=== PATIENT | female | born 1990 | race Asian ===

== ENCOUNTER 2019-10-03 16:37 | Inpatient (IN) | payer OTHER ==
[2019-10-03] MEDS ORDERED: Lactated Ringers 1000 ML Bag* 1,000 ML IV ONE (20:06)
[2019-10-03] MEDS ORDERED: Buffered Lidocaine 1% SYRIN* 1 ML/SYRINGE INTRADERM ONE (20:06)
--- NOTE | 2019-10-03 20:23 | HP ---
General Information - General Information Maternal Age: 28 Grav: 3 Para: 2 SAB: 0 IEA: 0 Estimated Due Date: 10/28/19 Determined By: LMP Gestational Age in Weeks/Days: 36w3d Maternal Blood Type and Rh: A Positive - Results this Serology/RPR Result: Non-Reactive Rubella Result: Immune HBsAg Result: Negative HIV Result: Negative GBS Culture Result: Negative Past Medical History Delivery History: Hx C/Section - G1 2/2 Breech presentation, pre-term labor at 32 weeks. Successful at 31 weeks, subsequent demise at 5 days of life secondary to baby delivered pre-term in remote setting in [place] with inadequate care. Pertinent Past Medical History: Non-Contributory Pertinent Past Surgical History: See Records Pertinent Family History: Non-Contributory - Antepartal Records Antepartal Records: Reviewed, Complicated by: - Poor Obstetric History , Hx of PTD x 2 and demise, Short Cervix current gestation, GDMA1, Bicornuate Uterus Review of Systems Constitutional: Comfortable CV Complaint: No Respiratory: Shortness of Breath: No Gastrointestinal: No Nausea/Vomiting, Normal Bowel Movement Genitourinary: Leaking Fluid, No Dysuria, No Bleeding Musculoskeletal: No Complaint, No Epigastric Pain Neurological: No Headache, No Visual Changes Movement: Normal Exam Allergies/Adverse Reactions: Allergies No Known Allergies Allergy (Verified 08/19/19 13:33) Temp 98 Pulse 84 RR 18 BP 117/72 Lab Values - Entire Visit: Laboratory Tests 10/03/19 10/03/19 16:45 18:47 Vag Amniotic Fld Detect Negative Negative - Measurements Pre- Weight: 172 lb - Exam Breast: Breast Exam Deferred CVA: No CVA Tenderness Extremities: No Edema Heart: Normal Rhythm/Heart Sounds HEENT: No Significant Findings Lungs: Clear Bilaterally Rectal: Rectal Exam Deferred Reflexes: DTR 2+ Thyroid: No Thyromegaly - Abdominal Exam Abdomen Exam: Non-Tender - Ultrasound/Biophysical Profile Ultrasound Status: Bedside Exam Ultrasound Findings: Vertex, ARELY 11, Anterior placenta, active fetus Targeted Exam Findings Estimated Weight: 5# Cervical Exam: 4cm Effacement: Complete Station: -1 - Exam performed in office on 09/30/2019, deferred today secondary to PPROM Presenting Part: Vertex Membrane Status: SROM Amniotic Fluid Evaluation: Negative ROM Plus - Negative ROM Plus, but patient is grossly ruptured on speculum exam with pooling of amniotic fluid with vernax present, amniotic fluid seen pooling directly out of cervix with valsalva Sterile Speculum Exam: On speculum exam there is pooling of amniotic fluid Bleeding/Discharge: None EFM Findings - External Monitor Findings Baseline Heart Rate: 130 External Monitor Findings: Accelerations Present, No Pattern of Variable or Late Decelerations, Variability Moderate, Baseline Stable Contractions: Irregular, 45-90 Seconds Contraction Frequency: occasional Assessment/Plan - Assessment 28 y/o at 36w3d with gross rupture of membranes; ROM plus was negative, but on speculum exam there is large pooling with vernax and pooling visualized directly from the cervical Os GDMA1 Hx of PTL x 2 Hx of x 1, followed by successful Bicornuate uterus - Obstetrical Risk Factors Obstetrical Risk Factors: , Gestational Diabetes, Previous C/Section in Labor - Plan Plan: Induction Plan Comment: Admit to Labor and Delivery Received course of steroids at 30 weeks gestation, no indication for repeat steroids at this gestation GBS negative Will collect FSBG values q 4 hours Will insert IV and collect CBC/T&S Augment with Pitocin now TOLAC/ consent forms reviewed and signed Anesthesia aware - Date/Time of Admission Date of Admission: 10/03/19 Time of Admission: 21:00
[2019-10-03] MEDS ORDERED: Oxytocin in LR* 20 UNITS/1,000 ML BAG IVPB SCH (21:00)
[2019-10-03] MEDS ORDERED: Lactated Ringers 1000 ML Bag* 1,000 ML IV SCH (21:00)
[2019-10-03 21:53] LABS: ABS Eosinophils 0.1 10^3/ul (0-0.6); ABS Lymphocytes 2.1 10^3/ul (1.0-4.8); ABS Monocytes 0.8 10^3/ul (0-0.8); ABS Neutrophils 6.3 10^3/ul (1.5-7.7); Eosinophil % 1.3 %; Hematocrit 35 % (35-47); Hemoglobin 11.4 g/dL (12.0-16.0); Lymphocyte % 22.5 %; Mean Corpuscular HGB Conc 33 g/dL (31-36); Mean Corpuscular Hemoglobin 26 pg (27-31); Mean Corpuscular Volume 81 fL (80-97); Mean Platelet Volume 9.3 fL (7.4-10.4); Platelet Count 248 10^3/uL (150-450); Red Blood Count 4.32 10^6 /uL (3.70-4.87); Red Cell Distribution Width 17 % (10-15); White Blood Count 9.3 10^3/uL (3.5-10.8)
[2019-10-03 23:18] LABS: Urine Benzodiazepine Screen None Detected (None Detect); Urine Opiates Screen None Detected (None Detect)
[2019-10-04] MEDS ORDERED: Acetaminophen TAB* 325 MG PO PRN (00:50)
[2019-10-04] MEDS ORDERED: Glycerin ADULT SUPP PR PRN (00:50)
[2019-10-04] MEDS ORDERED: Witch Hazel PAD* JAR TOPICAL PRN (00:50)
[2019-10-04] MEDS ORDERED: Dibucaine 1% 28.35 GM TUBE PR PRN (00:50)
[2019-10-04] MEDS: Ibuprofen TAB* 600 MG PO PRN ×2 (00:59→15:04)
[2019-10-04] MEDS ORDERED: Lactated Ringers 1000 ML Bag* 1,000 ML IV SCH (01:00)
[2019-10-04] MEDS ORDERED: Oxytocin in LR* 20 UNITS/1,000 ML BAG IVPB SCH (01:00)
--- NOTE | 2019-10-04 01:24 | PROCNOTE ---
[facility] OB: Delivery Note - Delivery A Date of : 10/03/19 Time of : 23:34 [place] Weight at : 4 lb 15 oz Score 1 Minute: 8 Score 5 Minutes: 9 Gestational Age in Weeks and Days at Delivery: 36 Weeks and 3 Days Delivery Method: Spontaneous Vaginal Labor: Induced Did Patient attempt ?: Yes, Successful Amniotic Fluid: Clear Estimated Blood Loss: 250 Anesthesia/Analgesia: None Delivered By: Akbar Cross JR - Nursery Level of Nursery: Regular/Bedside - Perineum Perineal Injury: Vaginal Laceration, 1st Degree Perineal Repair: By Delivering Practioner - Repaired with 3-0 Vicryl rapide, bilateral labial lacerations, 1st degree perineal - Events Delivery Events of Note: Pitocin During Labor - Additional Delivery Notes Additional Delivery Notes: Pt presented to L&D with gross rupture of membranes. Admitted and Pitocin started for augmentation. Progressed to Fully dilated and delivered precipitiously. Mother and doing well at time of this note.
[2019-10-04] MEDS ORDERED: Simethicone TAB* 80 MG TAB.CHEW PO SCH (08:30)
[2019-10-04] MEDS: Docusate CAP* 100 MG PO SCH ×3 (08:36→20:11)
[2019-10-04 19:31] VITALS: BP 92/52
[2019-10-05] MEDS: Ibuprofen TAB* 600 MG PO PRN ×2 (02:36→09:06)
[2019-10-05 05:39] LABS: ABS Basophils 0.1 10^3/ul (0-0.2); ABS Eosinophils 0.5 10^3/ul (0-0.6); ABS Lymphocytes 3.5 10^3/ul (1.0-4.8); ABS Neutrophils 6.6 10^3/ul (1.5-7.7); Hematocrit 33 % (35-47); Hemoglobin 10.8 g/dL (12.0-16.0); Lymphocyte % 30.3 %; Mean Corpuscular HGB Conc 32 g/dL (31-36); Mean Corpuscular Hemoglobin 27 pg (27-31); Mean Corpuscular Volume 82 fL (80-97); Mean Platelet Volume 8.5 fL (7.4-10.4); Platelet Count 243 10^3/uL (150-450); Red Blood Count 4.07 10^6 /uL (3.70-4.87); Red Cell Distribution Width 17 % (10-15); White Blood Count 11.6 10^3/uL (3.5-10.8)
[2019-10-05] MEDS ORDERED: Ferrous Gluconate TAB* 324 MG TAB PO SCH (09:00)
[2019-10-05] MEDS: Docusate CAP* 100 MG PO SCH ×2 (11:04→17:49)
== END 2019-10-05 18:40 | disposition home or self-care (01) | DRG 560 ==
LOC: MCHOBOUT 16:37 → MCHOB 20:11
PROVIDERS: ADMIT Obstetrics & Gynecology; ATTEND Obstetrics & Gynecology
PROC: 10E0XZZ Delivery of Products of Conception, External Approach (ICD-10-PCS; principal; 2019-10-03)
PROC: 4A1HXCZ Monitoring of Products of Conception, Cardiac Rate, External Approach (ICD-10-PCS; 2019-10-03)
PROC: 0HQ9XZZ Repair Perineum Skin, External Approach (ICD-10-PCS; 2019-10-03)
PROC: 0UQMXZZ Repair Vulva, External Approach (ICD-10-PCS; 2019-10-03)
PROC: 3E033VJ Introduction of Other Hormone into Peripheral Vein, Percutaneous Approach (ICD-10-PCS; 2019-10-03)
DX: O42.013 Preterm premature rupture of membranes, onset of labor within 24 hours of rupture, third trimester (principal); O60.14X0 Preterm labor third trimester with preterm delivery third trimester, not applicable or unspecified; Z37.0 Single live birth; O26.873 Cervical shortening, third trimester; O24.429 Gestational diabetes mellitus in childbirth, unspecified control; O34.211 Maternal care for low transverse scar from previous cesarean delivery; O34.03 Maternal care for unspecified congenital malformation of uterus, third trimester; Q51.3 Bicornate uterus; O70.0 First degree perineal laceration during delivery; Z3A.36 36 weeks gestation of pregnancy
CPT/HCPCS: 36415; 80307; 84112; 85025; 86850; 86900; 86901; A9270-GY